=== PATIENT | female | born 1960 | race Hispanic/Latino ===

== ENCOUNTER → 2023-11-12 | Day surgery (SDC) | payer OTHER ==
[~2023-11-12] MED LIST: DEXMEDETOMIDINE HCL 200 MCG/2 ML VIAL ONE; GLIMEPIRIDE2 MG PO; LEVOTHYROXINE50 MCG PO; LIDOCAINE HCL 2% LOCAL INJ 5 ML SDV VIAL INJ ONE; LISINOPRIL-HCT1 EAC2 PO; MIDAZOLAM HCL 2 MG/2 ML VIAL ONE; MONTELUKAST SOD10 MG PO; OMEPRAZOLE40 MG PO; PROPOFOL IV EMULSION 10 MG/ML 50 ML VIAL IV ONE; SIMVASTATIN20 MG PO
[2023-11-12] MEDS: LACTATED RINGER'S 1,000 ML ONE (11:07)
[2023-11-12 14:25] VITALS: BP 109/70; PULSE 58; RESP 15; TEMP 97.2; O2SAT 98
== END | disposition home or self-care (01) ==
LOC: OR 11:01
PROVIDERS: ATTEND Internal Medicine Gastroenterology
DX: Z12.11 Encounter for screening for malignant neoplasm of colon (principal); D12.2 Benign neoplasm of ascending colon; K63.5 Polyp of colon; K64.8 Other hemorrhoids; K57.30 Diverticulosis of large intestine without perforation or abscess without bleeding; I10 Essential (primary) hypertension; E78.5 Hyperlipidemia, unspecified; K21.9 Gastro-esophageal reflux disease without esophagitis; E03.9 Hypothyroidism, unspecified; E11.9 Type 2 diabetes mellitus without complications; Z79.84 Long term (current) use of oral hypoglycemic drugs; R00.1 Bradycardia, unspecified; Z01.810 Encounter for preprocedural cardiovascular examination; Z79.899 Other long term (current) drug therapy
CPT/HCPCS: 45380; 45385; 93005; J2003; J2250; J2704; J7121; 45378